=== PATIENT | male | born 1990 | race Two or more races ===

== ENCOUNTER 2024-12-29 21:03 | Emergency (ER) | payer SELFPAY ==
[2024-12-29 21:21] VITALS: BP 144/97; PULSE 100; RESP 20; TEMP 36.9; O2SAT 98
[2024-12-29 21:23] VITALS: BMI 25.8
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
== END 2024-12-29 21:35 ==
LOC: SERX 23:32
PROVIDERS: Emergency Provider Emergency Medicine
DX: Z02.89 Encounter for other administrative examinations (principal)
CPT/HCPCS: 99282